=== PATIENT | male | born 1980 | race African-American/Black ===

== ENCOUNTER 2017-02-04 07:53 | Emergency (ER) | payer OTHER, BC ==
[2017-02-04 08:21] VITALS: BMI 48.4
[2017-02-04 08:27] VITALS: BP 147/75
[2017-02-04 08:32] LABS: BASOPHILS # (AUTO) 0.1 X10^3/uL (0.0-0.1); BASOPHILS % (AUTO) 1.2 % (0.2-1.0); EOSINOPHILS # (AUTO) 0.1 x10^3/uL (0.0-0.2); EOSINOPHILS % (AUTO) 1.1 % (0.9-2.9); LYMPHOCYTES # (AUTO) 1.5 X10^3/uL (1.3-2.9); LYMPHOCYTES % (AUTO) 14.2 % (21.0-51.0); MEAN CORPUSCULAR HEMOGLOBIN 23.2 pg (27.0-34.0); MEAN CORPUSCULAR VOLUME 72.7 fL (80.0-100.0); MEAN PLATELET VOLUME 8.7 fL (7.4-11.0); MONOCYTES # (AUTO) 0.7 x10^3/uL (0.3-0.8); MONOCYTES % (AUTO) 6.8 % (0.0-13.0); NEUTROPHILS # (AUTO) 7.9 x10^3/uL (2.2-4.8); NEUTROPHILS % (AUTO) 76.7 % (42.0-75.0); PLATELET COUNT 244 X10^3/uL (150.0-450.0); RED BLOOD COUNT 6.47 X10^6/uL (4.7-6.0); RED CELL DISTRIBUTION WIDTH 20.3 % (11.6-16.5); WHITE BLOOD COUNT 10.3 X10^3/uL (3.6-10.0)
--- NOTE | 2017-02-04 08:37 | RAD ---
HISTORY: Chest pain Study: Chest one view Comparison: None Findings: The trachea is midline. The cardiac silhouette is enlarged. No congestive heart failure is noted.. The lungs are clear without focal infiltrate or effusion. The bony thorax is unremarkable. IMPRESSION: 1. Cardiomegaly without congestive heart failure 2. Lungs clear Reported By:
[2017-02-04 08:41] LABS: ANISOCYTOSIS 1+; HYPOCHROMASIA 1+; PLATELET MORPHOLOGY COMMENT NORMAL (NORMAL)
[2017-02-04 08:50] LABS: B-TYPE NATRIURETIC PEPTIDE 233 pg/mL (0-79)
--- NOTE | 2017-02-04 09:08 | CT ---
CT HEAD WITHOUT CONTRAST CLINICAL HISTORY: 36-year-old male with altered mental status. COMPARISON: None. TECHNIQUE: Multiple axial CT images were obtained from the skull base to the cranial vertex without the administration of contrast. FINDINGS: No evidence of abnormal intra- or extra axial fluid collections, midline shift, or mass ef fect. Kunz white differentiation is maintained. Age advanced cortical volume loss is present, with c ommensurate sulcal and ventricular prominence. The basal cisterns are normal in appearance. Significant polypoid mucosal thickening within the maxillary sinuses, left greater than right. Hyper pneumatization of the temporal bones. Remaining imaged paranasal sinuses are clear. Partially image d mastoid air cells are clear. Tympanic cavities are clear. IMPRESSION: 1. No acute intracranial process. 2. Mucosal thickening of the maxillary sinuses as described. Correlate for sinusitis. Reported By:
[2017-02-04 09:11] LABS: ALANINE AMINOTRANSFERASE 30 Units/L (12-78); ALBUMIN 3.4 g/dL (3.4-5.0); ALKALINE PHOSPHATASE 193 Units/L (46-116); ASPARTATE AMINO TRANSFERASE 23 Units/L (15-37); BLOOD UREA NITROGEN 58 mg/dL (7-18); CALCIUM 7.5 mg/dL (8.5-10.1); CARBON DIOXIDE 29.4 mmol/L (21-32); CHLORIDE 94 mmol/L (98-107); CREATINE KINASE 558 Units/L (39-308); CREATININE 19.57 mg/dL (0.70-1.30); GLUCOSE 52 mg/dL (65-99); SODIUM 136 mmol/L (136-145); TOTAL PROTEIN 8.3 g/dL (6.4-8.2); TROPONIN I 0.04 ng/mL (0-1.5); eGFR BLACK RACES 3 (>60); eGFR NON BLACK RACES 3 (>60)
--- NOTE | 2017-02-04 09:17 | DR.AMS ---
HPI - Time Seen Time seen: 08:10 - HPI Comment HPI Comment: HISTORY BELOW. - Complaint Cheif Complaint Doctors Comments: FOUND UNRESPONSIVE AT HOME. EMS ARRIVE TO CONFUSE PATIENT WITH SLIGHTLY LOW GLUCOSE. GLUCOSE LOW IN ED. STILL CONFUSE BUT MUCH MORE ALERT. NO FEVER. DIABETIC PATIENT WITH ESRD ON HEMODIALYSIS DUE TODAY. - Reviewed Nurses Notes Reviewed: Yes - Source History Provided: Patient, EMS - Mode of Arrival Mode of Arrival: EMS - Timing Came On: Suddenly Symptoms: Improving Symptom Onset: Unknown - Duration Duration: Constant Duration: Minutes - Quality Quality: Decreased Alertness, Change in Behavior, Confusion - Severity Severity: Moderate - Context Recent: denies: Fever History Of: Hypoglycemia, Diabetes, On Insulin - Associated Signs and Symptoms Associated Signs and Symptoms: Generalized Weakness, Headache, Change in Behavior, Confusion, Unresponsiveness PMH - PMH Past Medical History: Dialysis, Hyperthyroidism, Hypertension, Dyslipidemia, Diabetes, Renal Disease Past Surgical History: Yes Surgical History: Ortho Surgery - Family History Family Medical History: Diabetes Mellitus, Hypertension - Social History Do you use any recreational Drugs:: No ROS - Review of Systems Constitutional: Weakness, Fatigue. negative: Chills, Fever Eyes: negative: Eye Pain, Discharge ENTM: negative: Ear Pain, Nose Discharge, Nose Congestion Respiratoy: Non-Productive Cough, Short of Breath, Wheezing. negative: Hemoptysis Cardiovascular: Edema. negative: Chest Pain Gastrointestinal/Abdominal: negative: Abdominal Pain, Diarrhea, Nausea, Vomiting Genitourinary: negative: Dysuria, Hematuria Neurological: Headache, Weakness, Dizziness Musculoskeletal: Muscle Pain Integumentary: Change in Color Hematologic/Lymphatic: Easy Bleeding, Easy Bruising Endocrine: negative: Excessive Sweating, Flushing, Decreased Appetite All Other Systems: Reviewed and Negative PE - Vitals Vital Signs: Temp Pulse Pulse Resp BP BP Pulse Ox 02/04/17 08:27 68 18 147/75 95 02/04/17 07:59 95.6 F L 68 18 158/98 97 03/16/16 17:19 163/69 01/25/13 11:38 175/96 - General Limitations: No Limitations General Appearance: Alert - Head Head Exam: Normal Inspection Head Exam Physical: Other (NONE) - Eyes Eye exam: PERRL, EOMI. negative: Scleral Icterus, Conjunctival Injection Pupils: Regular, Round: Bilateral - ENT ENT Exam: Normal Exam, Normal Oropharynx, Normal External Ear Exam, TM's Normal Bilaterally External Ear Exam: Normal External Inspection TM/Canal Exam: Bilateral Normal Nose Exam: Normal Nose Exam Mouth Exam: Normal Inspection Throat Exam: Normal Inspection - Neck Neck Exam: Trachea Midline. negative: Tenderness, Meningismus, Lymphadenopathy - Chest Chest Inspection: Symmetric Chest Wall Rise - Respiratory Respiratory Exam: Normal Lung Sounds Bilat Respiratory Exam: Bilateral Rhonchi, Lower Rhonchi - Cardiovascular Cardiovascular Exam: Regular Rate, Normal Rhythm, Normal Heart Sounds - Abdominal Exam Abdominal Exam: Normal Bowel Sounds, Soft. negative: Tenderness - Extremities Extremities Exam: Edema - Back Back Exam: Paraspinal Tenderness - Neurological Neurological Exam: Alert, Oriented X3 Speech: Fluid Speech Cranial Nerve Exam: EOM Function (II, III, IV, ): Normal, Facial Sensation (V) : Normal, Facial Palsy (VII): Normal, Gag reflex (XI): Normal, Tongue Deviation : Normal Motor Strength - LUE: 5/5 Motor Strength - RUE: 5/5 Motor Strength - LLE: 5/5 Motor Strength - RLE: 5/5 Upper Motor Neuron Exam: Babinski Sign: Normal DTR: Patellar (L): 4+, patellar (R): 4+ - Psychological Psychiatric Exam: Normal Affect, Normal Mood - Skin Skin Exam: Erythema MDM - Additional Information Obtained Additional Information Obtained From: Family - Differential Diagnosis Metabolic: Dehydration, Hypercalcemia, Hypernatremia, Hypoglycemia, Hyponatremia , Hypoxemia Structural: Closed Head Injury, CVA Infectious: Sepsis, UTI Course - Treatment Treatment: PATIENT GIVEN REGULAR DIET IN ED. D50 AND INSULIN GIVEN WITH PO KAYEXALATE. POTASSIUM. PATIENT DISCHARGE TO GO FOR DIALYSIS. - Education/Counseling Education/Counseling: Patient, Family, Education Educated On: Treatment, Diagnosis, Needs for Follow Up ROR - Labs Reviewed Laboratory Results Reviewed?: Yes Result Diagrams: 02/04/17 08:12 02/04/17 11:33 Laboratory: WBC 10.3 X10^3/uL (3.6-10.0) H 02/04/17 08:12 RBC 6.47 X10^6/uL (4.7-6.0) H 02/04/17 08:12 Hgb 15.0 g/dL (13.5-18.0) 02/04/17 08:12 Hct 47.0 % (42.0-54.0) 02/04/17 08:12 MCV 72.7 fL (80.0-100.0) L 02/04/17 08:12 MCH 23.2 pg (27.0-34.0) L 02/04/17 08:12 MCHC 32.0 g/dL (33.0-35.0) L 02/04/17 08:12 RDW 20.3 % (11.6-16.5) H 02/04/17 08:12 Plt Count 244 X10^3/uL (150.0-450.0) 02/04/17 08:12 Plt Count Comment Adequate (ADEQUATE) 02/04/17 08:12 MPV 8.7 fL (7.4-11.0) 02/04/17 08:12 Neut % 76.7 % (42.0-75.0) H 02/04/17 08:12 Lymph % 14.2 % (21.0-51.0) L 02/04/17 08:12 [place] % 6.8 % (0.0-13.0) 02/04/17 08:12 Eos % 1.1 % (0.9-2.9) 02/04/17 08:12 Baso % 1.2 % (0.2-1.0) H 02/04/17 08:12 Neut # 7.9 x10^3/uL (2.2-4.8) H 02/04/17 08:12 Lymph # 1.5 X10^3/uL (1.3-2.9) 02/04/17 08:12 [place] # 0.7 x10^3/uL (0.3-0.8) 02/04/17 08:12 Eos # 0.1 x10^3/uL (0.0-0.2) 02/04/17 08:12 Baso # 0.1 X10^3/uL (0.0-0.1) 02/04/17 08:12 Absolute Nucleated RBC 0.1 /100WBC 02/04/17 08:12 Plt Morphology Comment Normal (NORMAL) 02/04/17 08:12 RBC Morphology Abnormal (NORMAL) 02/04/17 08:12 Hypochromasia 1+ A 02/04/17 08:12 Anisocytosis 1+ A 02/04/17 08:12 Sodium 136 mmol/L (136-145) 02/04/17 08:12 Corrected Sodium TNP 02/04/17 08:12 Potassium 5.5 mmol/L (3.5-5.1) H 02/04/17 11:33 Chloride 94 mmol/L (98-107) L 02/04/17 08:12 Carbon Dioxide 29.4 mmol/L (21-32) 02/04/17 08:12 BUN 58 mg/dL (7-18) H 02/04/17 08:12 Creatinine 19.57 mg/dL (0.70-1.30) H 02/04/17 08:12 Est GFR (MDRD) Af Amer 3 (>60) L 02/04/17 08:12 Est GFR (MDRD) Non-Af 3 (>60) L 02/04/17 08:12 Glucose 52 mg/dL (65-99) L 02/04/17 08:12 Calcium 7.5 mg/dL (8.5-10.1) L 02/04/17 08:12 Corrected Calcium TNP 02/04/17 08:12 Total Bilirubin 0.70 mg/dL (0.2-1.0) 02/04/17 08:12 AST 23 Units/L (15-37) 02/04/17 08:12 ALT 30 Units/L (12-78) 02/04/17 08:12 Alkaline Phosphatase 193 Units/L (46-116) H 02/04/17 08:12 Creatine Kinase 558 Units/L (39-308) H 02/04/17 08:12 CK-MB (CK-2) 5.4 ng/mL (0-4.0) H* 02/04/17 08:12 CK/CKMB % Calc 1.0 % (<4) 02/04/17 08:12 Troponin I 0.04 ng/mL (0-1.5) 02/04/17 08:12 B-Natriuretic Peptide 233 pg/mL (0-79) H 02/04/17 08:12 Total Protein 8.3 g/dL (6.4-8.2) H 02/04/17 08:12 Albumin 3.4 g/dL (3.4-5.0) 02/04/17 08:12 Globulin 4.9 g/dL (2.5-4.5) H 02/04/17 08:12 Albumin/Globulin Ratio 0.7 Ratio (1.1-2.1) L 02/04/17 08:12 - XRAY XRAY Interpreted by: Radiologist XRAY Findings: REPORT DISCUSS WITH PATIENT. - EKG Rhythm: NSR (EKG NOTED.) - Diagnosis Discharge Problem: Hyperkalemia, Hypoglycemia Mental status alteration Qualifiers: Altered mental status type: transient alteration of awareness Qualified Code(s) : R40.4 - Transient alteration of awareness - Discharge Plan Disposition: 01 HOME, SELF-CARE Condition: Stable - Follow ups/Referrals Follow ups/Referrals: EMILIA BRADLEY [Primary Care Provider] - 1 day - Instructions Instructions: Hypoglycemia, Hyperkalemia Additional Instructions: DIALYSIS TODAY SCHEDULE. RETURN TO ED IF WORSE.
[2017-02-04 09:22] LABS: CREATINE KINASE MB 5.4 ng/mL (0-4.0)
[2017-02-04] MEDS ORDERED: HumuLIN R IV ONE (09:58)
[2017-02-04] MEDS ORDERED: D50W ABBOJECT SYR IV ONE (09:58)
[2017-02-04] MEDS ORDERED: KAYEXALATE PO ONE (09:59)
[2017-02-04] MEDS ORDERED: HumuLIN R ONE (10:14)
[2017-02-04] MEDS ORDERED: D50W ABBOJECT SYR ONE (10:14)
[2017-02-04] MEDS ORDERED: SNACK - Diabetic Appropriate PO SCH (20:00)
== END 2017-02-04 12:39 | disposition home or self-care (01) ==
LOC: ER 08:02
DX: R40.4 Transient alteration of awareness (principal); E11.65 Type 2 diabetes mellitus with hyperglycemia; E87.5 Hyperkalemia; R51 Headache; N18.6 End stage renal disease; Z99.2 Dependence on renal dialysis; R94.31 Abnormal electrocardiogram [ECG] [EKG]
CPT/HCPCS: 36415; 70450; 71010; 80053; 82550; 82553; 83880; 84132; 84484; 85025; 87040; 93005; 93010; 96365; 96374; 96375; 99283; A4222; J1815; J3490

== ENCOUNTER 2017-04-23 06:21 | Emergency (ER) | payer OTHER, BC ==
[2017-04-23 06:32] VITALS: BP 136/79; BMI 43.9
--- NOTE | 2017-04-23 06:48 | DR.HYPOGLY ---
HPI - Time Seen Time seen: 06:40 - PCP Primary Care Physician: MIRNA - Complaint Chief Complaint Doctors Comments: Patient states that his blood glucose was low. He drank a soda and ate a candy bar. When EMS arrived his glucose for 53mg /dl Chief Complaint:: SEIZURE ACTIVITY Self Treatment fo Chief Complaint: DRANK SODA AND ATE A CANDY BAR - Source History Provided: Patient - Mode of Arrival Mode of Arrival: EMS - Timing Onset of Chief Complaint: 04/23/17 PMH - PMH Past Medical History: Yes Past Medical History: Dialysis, Hyperthyroidism, Hypertension, Dyslipidemia, Diabetes, Renal Disease Past Surgical History: Yes Surgical History: Ortho Surgery Past Surgical History Comment: SHUNT LEFT ARM - Family History History of Family Medical Conditions: Yes Family Medical History: Diabetes Mellitus, Hypertension - Social History Does patient currently use any type of tobacco product: No Have you used tobacco products in the last 12 months: No Type of Tobacco Use: Cigars Does any household member use tobacco: No Alcohol Use: None Do you use any recreational Drugs:: No Lives With: Family Lives Where: Home - infectious screening In the last 2 months have you had wt loss of >10#?: NO Have you had fever, night sweats or hemotysis?: No Have you traveled outside the country in the last 6 months?: No Isolation: Standard ROS - Review of Systems Eyes: No Symptoms Reported ENTM: No Symptoms Reported Respiratoy: No Symptoms Reported Cardiovascular: No Symptoms Reported Gastrointestinal/Abdominal: No Symptoms Reported Genitourinary: No Symptoms Reported Neurological: No Symptoms Reported Musculoskeletal: No Symptoms Reported Integumentary: No Symptoms Reported Hematologic/Lymphatic: No Symptoms Reported Endocrine: No Symptoms Reported Psychiatric: No Symptoms Reported All Other Systems: Reviewed and Negative PE - Vital Signs Vitals: Temperature 97.8 F Pulse Rate 72 Respiratory Rate 16 Blood Pressure [Right Arm] 147/75 Blood Pressure 136/79 O2 Sat by Pulse Oximetry 97 - General Limitations: No Limitations General Appearance: Alert, In No Apparent Distress - Eyes Eye exam: Normal Appearance, PERRL, EOMI Pupils: Regular, Round: Bilateral Sclera/Conjunctival: Normal Inspection: Bilateral - ENT ENT Exam: Normal Exam, Normal Oropharynx Nose Exam: Normal Nose Exam Mouth Exam: Normal Inspection Throat Exam: Normal Inspection - Neck Neck Exam: Normal Inspection - Chest Chest Inspection: Normal Inspection, Symmetric Chest Wall Rise - Respiratory Respiratory Exam: Normal Lung Sounds Bilat Respiratory Exam: Bilateral Clear to Auscultation - Cardiovascular Cardiovascular Exam: Regular Rate, Normal Rhythm - Abdominal Exam Abdominal Exam: Normal Inspection Abdominal Tenderness: negative: RUQ, RLQ, LUQ, LLQ, Epigastrium, Suprapubic, Diffuse, Mild, Moderate, Severe, Other - Extremities Extremities Exam: Other (shunt per left arm) - Back Back Exam: Normal Inspection - Neurologic Neurological Exam: Alert, Oriented X3, CN II-XII Intact Cranial Nerve Exam: EOM Function (II, III, IV, ): Normal Cerebellar Function: Finger to Nose: Normal Motor Strength - LUE: 3/5 Motor Strength - RUE: 3/5 Motor Strength - LLE: 3/5 Motor Strength - RLE: 3/5 Upper Motor Neuron Exam: Valente Neglect: Normal Sensory Exam Upper Extremity: Light Touch: Normal Sensory Exam Lower Extremity: Light Touch: Normal - Psychiatric Psychiatric Exam: Normal Affect, Normal Mood - Skin Skin Exam: Warm, Dry, Intact Course - Reevaluation 1st: Improved ROR - Labs Reviewed Result Diagrams: 04/23/17 06:52 04/23/17 06:52 Laboratory: WBC 6.5 X10^3/uL (3.6-10.0) 04/23/17 06:52 RBC 6.12 X10^6/uL (4.7-6.0) H 04/23/17 06:52 Hgb 14.4 g/dL (13.5-18.0) 04/23/17 06:52 Hct 45.3 % (42.0-54.0) 04/23/17 06:52 MCV 74.0 fL (80.0-100.0) L 04/23/17 06:52 MCH 23.6 pg (27.0-34.0) L 04/23/17 06:52 MCHC 31.8 g/dL (33.0-35.0) L 04/23/17 06:52 RDW 22.5 % (11.6-16.5) H 04/23/17 06:52 Plt Count 177 X10^3/uL (150.0-450.0) 04/23/17 06:52 MPV 9.9 fL (7.4-11.0) 04/23/17 06:52 Neut % 63.7 % (42.0-75.0) 04/23/17 06:52 Lymph % 25.4 % (21.0-51.0) 04/23/17 06:52 [place] % 5.2 % (0.0-13.0) 04/23/17 06:52 Eos % 4.7 % (0.9-2.9) H 04/23/17 06:52 Baso % 1.0 % (0.2-1.0) 04/23/17 06:52 Neut # 4.1 x10^3/uL (2.2-4.8) 04/23/17 06:52 Lymph # 1.7 X10^3/uL (1.3-2.9) 04/23/17 06:52 [place] # 0.3 x10^3/uL (0.3-0.8) 04/23/17 06:52 Eos # 0.3 x10^3/uL (0.0-0.2) H 04/23/17 06:52 Baso # 0.1 X10^3/uL (0.0-0.1) 04/23/17 06:52 Absolute Nucleated RBC 0.0 /100WBC 04/23/17 06:52 Sodium 136 mmol/L (136-145) 04/23/17 06:52 Corrected Sodium 136 mmol/L (136-145) 04/23/17 06:52 Potassium 4.3 mmol/L (3.5-5.1) 04/23/17 06:52 Chloride 96 mmol/L (98-107) L 04/23/17 06:52 Carbon Dioxide 29.6 mmol/L (21-32) 04/23/17 06:52 BUN 42 mg/dL (7-18) H 04/23/17 06:52 Creatinine 17.50 mg/dL (0.70-1.30) H 04/23/17 06:52 Est GFR (MDRD) Af Amer 4 (>60) L 04/23/17 06:52 Est GFR (MDRD) Non-Af 3 (>60) L 04/23/17 06:52 Glucose 112 mg/dL (65-99) H 04/23/17 06:52 POC Glucose (mg/dL) 91 mg/dL (65-99) 04/23/17 06:30 Hemoglobin A1c 6.1 % (4.5-6.2) 04/23/17 06:52 Calcium 7.9 mg/dL (8.5-10.1) L 04/23/17 06:52 - Diagnosis Discharge Problem: Hypoglycemia - Discharge Plan Condition: Stable - Follow ups/Referrals Follow ups/Referrals: ALEXIS MONTES [Primary Care Provider] - 3 days - Instructions
[2017-04-23 07:06] LABS: CALCIUM 7.9 mg/dL (8.5-10.1); CARBON DIOXIDE 29.6 mmol/L (21-32); CREATININE 17.5 mg/dL (0.70-1.30)
[2017-04-23 07:11] LABS: HEMOGLOBIN A1C 6.1 % (4.5-6.2)
[2017-04-23 07:13] LABS: BASOPHILS # (AUTO) 0.1 X10^3/uL (0.0-0.1); EOSINOPHILS # (AUTO) 0.3 x10^3/uL (0.0-0.2); EOSINOPHILS % (AUTO) 4.7 % (0.9-2.9); HEMATOCRIT 45.3 % (42.0-54.0); HEMOGLOBIN 14.4 g/dL (13.5-18.0); LYMPHOCYTES # (AUTO) 1.7 X10^3/uL (1.3-2.9); LYMPHOCYTES % (AUTO) 25.4 % (21.0-51.0); MEAN CORPUSCULAR HEMOGLOBIN 23.6 pg (27.0-34.0); MEAN CORPUSCULAR HGB CONC 31.8 g/dL (33.0-35.0); MEAN PLATELET VOLUME 9.9 fL (7.4-11.0); MONOCYTES # (AUTO) 0.3 x10^3/uL (0.3-0.8); MONOCYTES % (AUTO) 5.2 % (0.0-13.0); NEUTROPHILS # (AUTO) 4.1 x10^3/uL (2.2-4.8); NEUTROPHILS % (AUTO) 63.7 % (42.0-75.0); PLATELET COUNT 177 X10^3/uL (150.0-450.0); RED BLOOD COUNT 6.12 X10^6/uL (4.7-6.0); RED CELL DISTRIBUTION WIDTH 22.5 % (11.6-16.5); WHITE BLOOD COUNT 6.5 X10^3/uL (3.6-10.0)
[2017-04-23 07:29] LABS: ANISOCYTOSIS 1+; HYPOCHROMASIA 1+; PLATELET MORPHOLOGY COMMENT NORMAL (NORMAL)
== END 2017-04-23 07:30 | disposition home or self-care (01) ==
LOC: ER 06:21
DX: E16.2 Hypoglycemia, unspecified (principal)
CPT/HCPCS: 36415; 80048; 83036; 85025; 99282

== ENCOUNTER 2017-06-26 03:43 | Emergency (ER) | payer OTHER, BC ==
[2017-06-26] MEDS ORDERED: ZOFRAN INJ 4 MG VIAL ONE (03:54)
[2017-06-26] MEDS ORDERED: ZOFRAN INJ 4 MG VIAL IVP ONE (03:55)
[2017-06-26 04:00] VITALS: BMI 44.7
--- NOTE | 2017-06-26 04:05 | DR.GENAD ---
HPI - PCP Primary Care Physician: darshan - Complaint/Symptoms Chief Complaint Doctors Comments: Patient states that he took his usual dose of insulin on last night, he stated that he thinks his blood sugar dropped. He also reports that he started to have chills and congestion earlier today. Chief Complaint:: EMS responded to a low blood sugar. EMS reports blood sugar was in the 60's on arrival to scene. Patient was semi-consious on arrival. EMS states they administered oral glucose and it improved to 72. On arrival to hospital patient is alert and oriented x 3, drowsy. Patient is on dialysis, which is due today. - Source History Provided: EMS - Mode of Arrival Mode of Arrival: Stretcher - Timing Onset of Chief Complaint: 06/26/17 PMH - PMH Past Medical History: Yes Past Medical History: Dialysis, Hyperthyroidism, Hypertension, Dyslipidemia, Diabetes, Renal Disease Past Surgical History: Yes Surgical History: Ortho Surgery Past Surgical History Comment: av shunt - Family History History of Family Medical Conditions: Yes Family Medical History: Diabetes Mellitus, Hypertension - Social History Does patient currently use any type of tobacco product: No Have you used tobacco products in the last 12 months: No Type of Tobacco Use: None Alcohol Use: None Do you use any recreational Drugs:: No Lives With: Family Lives Where: Home - infectious screening In the last 2 months have you had wt loss of >10#?: NO Have you had fever, night sweats or hemotysis?: No Have you traveled outside the country in the last 6 months?: No Isolation: Standard ROS - Review of Systems Eyes: No Symptoms Reported ENTM: No Symptoms Reported Respiratoy: No Symptoms Reported Cardiovascular: No Symptoms Reported Gastrointestinal/Abdominal: No Symptoms Reported Genitourinary: No Symptoms Reported Neurological: No Symptoms Reported Musculoskeletal: No Symptoms Reported Integumentary: No Symptoms Reported Hematologic/Lymphatic: No Symptoms Reported Endocrine: No Symptoms Reported Psychiatric: No Symptoms Reported All Other Systems: Reviewed and Negative PE - Vital Signs Vitals: Temperature 98.2 F Pulse Rate [Right Brachial] 75 Respiratory Rate 24 Blood Pressure [Right Arm] 155/99 Blood Pressure 136/84 O2 Sat by Pulse Oximetry 78 - General General Appearance: Alert, In No Apparent Distress - Head Head Exam: Normal Inspection, Atraumatic - Eyes Eye exam: Normal Appearance, PERRL, EOMI - ENT ENT Exam: Normal Exam External Ear Exam: Normal External Inspection TM/Canal Exam: Bilateral Normal Nose Exam: Normal Nose Exam Mouth Exam: Normal Inspection Throat Exam: Normal Inspection - Neck Neck Exam: Normal Inspection, Full ROM - Chest Chest Inspection: Normal Inspection - Respiratory Respiratory Exam: Normal Lung Sounds Bilat Respiratory Exam: Bilateral Clear to Auscultation - Cardiovascular Cardiovascular Exam: Regular Rate, Normal Rhythm - Abdominal Exam Abdominal Exam: Normal Inspection - Extremities Extremities Exam: Normal Inspection, Full ROM - Back Back Exam: Normal Inspection, Full ROM - Neurologic Neurological Exam: Alert, Oriented X3, CN II-XII Intact - Psychiatric Psychiatric Exam: Normal Affect - Skin Skin Exam: Warm, Dry Course - Consultation Called: 23:00 (DrTaher accpeted patient for transfer ) - Education/Counseling Educated On: Treatment, Prognosis ROR - Labs Reviewed Result Diagrams: 06/26/17 04:15 06/26/17 04:15 Laboratory: WBC 10.0 X10^3/uL (3.6-10.0) 06/26/17 04:15 RBC 5.41 X10^6/uL (4.7-6.0) 06/26/17 04:15 Hgb 12.0 g/dL (13.5-18.0) L 06/26/17 04:15 Hct 38.2 % (42.0-54.0) L 06/26/17 04:15 MCV 70.7 fL (80.0-100.0) L 06/26/17 04:15 MCH 22.2 pg (27.0-34.0) L 06/26/17 04:15 MCHC 31.4 g/dL (33.0-35.0) L 06/26/17 04:15 RDW 19.8 % (11.6-16.5) H 06/26/17 04:15 Plt Count 130 X10^3/uL (150.0-450.0) L 06/26/17 04:15 Plt Count Comment Decreased (ADEQUATE) 06/26/17 04:15 MPV 8.6 fL (7.4-11.0) 06/26/17 04:15 Neut % 74.9 % (42.0-75.0) 06/26/17 04:15 Lymph % 8.6 % (21.0-51.0) L 06/26/17 04:15 [place] % 11.4 % (0.0-13.0) 06/26/17 04:15 Eos % 3.1 % (0.9-2.9) H 06/26/17 04:15 Baso % 2.0 % (0.2-1.0) H 06/26/17 04:15 Neut # 7.5 x10^3/uL (2.2-4.8) H 06/26/17 04:15 Lymph # 0.9 X10^3/uL (1.3-2.9) L 06/26/17 04:15 [place] # 1.1 x10^3/uL (0.3-0.8) H 06/26/17 04:15 Eos # 0.3 x10^3/uL (0.0-0.2) H 06/26/17 04:15 Baso # 0.2 X10^3/uL (0.0-0.1) H 06/26/17 04:15 Absolute Nucleated RBC 0.0 /100WBC 06/26/17 04:15 Plt Morphology Comment Normal (NORMAL) 06/26/17 04:15 RBC Morphology Abnormal (NORMAL) 06/26/17 04:15 Hypochromasia 1+ A 06/26/17 04:15 Anisocytosis 1+ A 06/26/17 04:15 Microcytosis 1+ A 06/26/17 04:15 Sample Site Rrad 06/26/17 06:31 ABG pH 7.430 (7.35-7.45) 06/26/17 06:31 ABG pCO2 47.0 mmHg (35.0-45.0) H 06/26/17 06:31 ABG pO2 47.0 mmHg (80.0-100.0) L* 06/26/17 06:31 ABG HCO3 31.2 mmol/L (22-26) H* 06/26/17 06:31 ABG O2 Saturation 84.0 % (90-100) L* 06/26/17 06:31 ABG Base Excess 5.9 mmol/L (-2.0-2.0) H 06/26/17 06:31 Gian Test Pos 06/26/17 06:31 A-a Gradient 44.0 mmHg 06/26/17 06:31 FiO2 21.000 06/26/17 06:31 Blood Gas Comments [place] abg well-mtf 06/26/17 06:31 Sodium 139 mmol/L (136-145) 06/26/17 04:15 Corrected Sodium TNP 06/26/17 04:15 Potassium 4.8 mmol/L (3.5-5.1) 06/26/17 04:15 Chloride 99 mmol/L (98-107) 06/26/17 04:15 Carbon Dioxide 30.5 mmol/L (21-32) 06/26/17 04:15 BUN 54 mg/dL (7-18) H 06/26/17 04:15 Creatinine 16.71 mg/dL (0.70-1.30) H 06/26/17 04:15 Est GFR (MDRD) Af Amer 4 (>60) L 06/26/17 04:15 Est GFR (MDRD) Non-Af 3 (>60) L 06/26/17 04:15 Glucose 64 mg/dL (65-99) L 06/26/17 04:15 Calcium 7.7 mg/dL (8.5-10.1) L 06/26/17 04:15 Corrected Calcium 8.3 mg/dL (8.5-10.1) L 06/26/17 04:15 Total Bilirubin 1.20 mg/dL (0.2-1.0) H 06/26/17 04:15 AST 31 Units/L (15-37) 06/26/17 04:15 ALT 33 Units/L (12-78) 06/26/17 04:15 Alkaline Phosphatase 175 Units/L (46-116) H 06/26/17 04:15 Total Protein 7.7 g/dL (6.4-8.2) 06/26/17 04:15 Albumin 3.3 g/dL (3.4-5.0) L 06/26/17 04:15 Globulin 4.4 g/dL (2.5-4.5) 06/26/17 04:15 Albumin/Globulin Ratio 0.8 Ratio (1.1-2.1) L 06/26/17 04:15 Influenza Type A (PCR) Negative (NEGATIVE) 06/26/17 04:49 Influenza Type B (PCR) Negative (NEGATIVE) 06/26/17 04:49 Streptococcus Screen Positive (NEGATIVE) A 06/26/17 04:49 - XRAY XRAY Interpreted by: Radiologist (Chest:Examination is limited by technique and patient body habitus. There is suspected increased interstitial opacities and peribronchial thickening likely representing acute bronchitis and or viral/ atypical pneumonia. A mild intersitial edema is also a consideration in the appropriate clinical setting. No dense airspace consolidation, pleural effusion or pneumothorax. Heart size is normal. Trachea is midline. No acute osseous abormality.) - Diagnosis Discharge Problem: Influenza-like illness, Strep pharyngitis Interstitial edema Qualifiers: Edema type: localized Qualified Code(s): R60.0 - Localized edema Renal failure Qualifiers: Renal failure chronicity: chronic Chronic kidney disease stage: stage 2 (mild) Qualified Code(s): N18.2 - Chronic kidney disease, stage 2 (mild) - Discharge Plan Condition: Stable - Follow ups/Referrals Follow ups/Referrals: NFD,None [Primary Care Provider] - 3 days - Instructions
[2017-06-26] MEDS ORDERED: NS 1000 ML 1,000 ML IV ONE (04:06)
[2017-06-26] MEDS ORDERED: NS 1000 ML 1,000 ML ONE (04:10)
[2017-06-26 04:24] LABS: BASOPHILS # (AUTO) 0.2 X10^3/uL (0.0-0.1); EOSINOPHILS # (AUTO) 0.3 x10^3/uL (0.0-0.2); EOSINOPHILS % (AUTO) 3.1 % (0.9-2.9); HEMATOCRIT 38.2 % (42.0-54.0); LYMPHOCYTES # (AUTO) 0.9 X10^3/uL (1.3-2.9); LYMPHOCYTES % (AUTO) 8.6 % (21.0-51.0); MEAN CORPUSCULAR HEMOGLOBIN 22.2 pg (27.0-34.0); MEAN CORPUSCULAR HGB CONC 31.4 g/dL (33.0-35.0); MEAN CORPUSCULAR VOLUME 70.7 fL (80.0-100.0); MEAN PLATELET VOLUME 8.6 fL (7.4-11.0); MONOCYTES # (AUTO) 1.1 x10^3/uL (0.3-0.8); MONOCYTES % (AUTO) 11.4 % (0.0-13.0); NEUTROPHILS # (AUTO) 7.5 x10^3/uL (2.2-4.8); NEUTROPHILS % (AUTO) 74.9 % (42.0-75.0); PLATELET COUNT 130 X10^3/uL (150.0-450.0); RED BLOOD COUNT 5.41 X10^6/uL (4.7-6.0); RED CELL DISTRIBUTION WIDTH 19.8 % (11.6-16.5)
[2017-06-26 04:32] LABS: ABG BASE EXCESS 4.8 mmol/L (-2.0-2.0)
[2017-06-26 04:32] LABS: ALANINE AMINOTRANSFERASE 33 Units/L (12-78); ALBUMIN 3.3 g/dL (3.4-5.0); ALKALINE PHOSPHATASE 175 Units/L (46-116); ASPARTATE AMINO TRANSFERASE 31 Units/L (15-37); BLOOD UREA NITROGEN 54 mg/dL (7-18); CALCIUM 7.7 mg/dL (8.5-10.1); CARBON DIOXIDE 30.5 mmol/L (21-32); CHLORIDE 99 mmol/L (98-107); COR CA(FOR HYPOALB) 8.3 mg/dL (8.5-10.1); CREATININE 16.71 mg/dL (0.70-1.30); SODIUM 139 mmol/L (136-145); TOTAL PROTEIN 7.7 g/dL (6.4-8.2); eGFR BLACK RACES 4 (>60); eGFR NON BLACK RACES 3 (>60)
[2017-06-26 04:33] LABS: ABG ALLEN TEST POS; ABG HCO3 30.4 mmol/L (22-26)
[2017-06-26 04:45] LABS: HYPOCHROMASIA 1+; PLATELET MORPHOLOGY COMMENT NORMAL (NORMAL)
[2017-06-26 04:46] LABS: ANISOCYTOSIS 1+; MICROCYTOSIS 1+
--- NOTE | 2017-06-26 04:48 | RAD ---
AP chest Indication: Cough Comparison: 02/04/2017. Findings: Examination is limited by technique and patient body habitus. There is suspected increased interstitial opacities and peribronchial thickening likely representing acute bronchitis and or viral /atypical pneumonia. A mild interstitial edema is also a consideration in the appropriate clinical se tting. No dense airspace consolidation, pleural effusion or pneumothorax. Heart size is normal. Trach ea is midline. No acute osseous abnormality. Impression: See above. Reported By:
[2017-06-26] MEDS ORDERED: D5 NS 1000 ML 1,000 ML IV ONE (04:52)
[2017-06-26] MEDS ORDERED: D5 NS 1000 ML 1,000 ML IV SCH (05:00)
[2017-06-26] MEDS ORDERED: BICILLIN L-A IM ONE ×2 (05:10→05:17)
[2017-06-26 06:41] LABS: ABG BASE EXCESS 5.9 mmol/L (-2.0-2.0)
[2017-06-26 06:42] LABS: ABG HCO3 31.2 mmol/L (22-26)
[2017-06-26 06:43] LABS: ABG ALLEN TEST POS
[2017-06-26 07:42] VITALS: BP 159/83
== END 2017-06-26 07:42 | disposition short-term general hospital (02) ==
LOC: ER 03:43
DX: R60.0 Localized edema (principal); N18.2 Chronic kidney disease, stage 2 (mild); J11.1 Influenza due to unidentified influenza virus with other respiratory manifestations; J02.0 Streptococcal pharyngitis
CPT/HCPCS: 36415; 36600; 71010; 80053; 82803; 85025; 87502; 87880; 96365; 96367; 96372; 96374; 99284; 99285; A4222; J0570; J2405

== ENCOUNTER 2017-07-30 08:51 | Emergency (ER) | payer OTHER, BC ==
[~2017-07-30 08:51] MED LIST: ADRENALINE CHL INJ IVP ONE; NS 1000 ML 1,000 ML IV ONE; SODIUM BICARBONATE 8.4% INJ ADULT IVP ONE
[2017-07-30] MEDS ORDERED: SODIUM BICARBONATE 8.4% INJ ADULT IVP ONE ×2 (08:52→09:36)
[2017-07-30] MEDS ORDERED: ADRENALINE CHL INJ IVP ONE ×7 (08:57→09:30)
[2017-07-30] MEDS ORDERED: DEXTROSE 25% IV ONE ×2 (09:00→09:20)
[2017-07-30] MEDS ORDERED: D50W ABBOJECT SYR IV ONE (09:10)
[2017-07-30 09:21] VITALS: BP 0/0; BMI 47.5
--- NOTE | 2017-07-30 09:50 | DR.GENAD ---
HPI - PCP Primary Care Physician: UNK - HPI Comment HPI Comment: PATIENT IN ED VIA EMS FULL CODE. FOUND AT HIS HOME NOT BREATHING, COLD AND CYANOTIC. ACLS PROTOCOL RESUSCITATION STARTED AND BROUGHT TO ED. HE WAS IN [place] WHEN FOUND AND HERE IN ED WELL.HE IS INTUBATED BY ANESTHESIA IN ED. SEE CODE NOTE FOR DETAIL. - Complaint/Symptoms Chief Complaint Doctors Comments: CARDIOPULMONARY ARREST. Chief Complaint:: PT WAS FOUND UNRESPONSIVE NOT BREATHING BY FAMILY MEMBER. TH LAST TIME PT WAS SPOKEN TO WAS LAST NIGHT. EMS BRINGS PT IN WITH FULL CODE IN PROGRESS. - Nurses notes reviewed Nurses Notes Review: Yes - Source History Provided: EMS - Mode of Arrival Mode of Arrival: EMS - Timing Onset of Chief Complaint: 07/30/17 Came on: Suddenly - Duration Duration: Constant Duration: Hours - Severity Severity: Extreme PMH - PMH Past Medical History: Yes (RECALLED FROM PREVIOUS ) Past Medical History: Dialysis, Hyperthyroidism, Hypertension, Dyslipidemia, Diabetes, Renal Disease Past Surgical History: Yes Surgical History: Ortho Surgery - Family History History of Family Medical Conditions: Yes Family Medical History: Diabetes Mellitus, Hypertension - Social History Do you use any recreational Drugs:: No Lives Where: Home - infectious screening Have you traveled outside the country in the last 6 months?: No Isolation: Standard ROS - Review of Systems Constitutional: Other (UNRESPONSIVE) Eyes: Other (PUPILS FIX) ENTM: negative: Epistaxis Respiratoy: Other (INTUCATED IN ED WITH SIZE 8 ET TUBE BY ANESTHESIA.). negative: Short of Breath (RESPIRATORY ARREST.) Cardiovascular: Cyanosis (PERIPHERAL CYANOSIS), Other (ASYSTOLINE ON MONITOR.). negative: Syncope (CARDIAC ARREST) Gastrointestinal/Abdominal: negative: Vomiting Genitourinary: Other (UNRESPONSIVE.) Neurological: Other (UNRESPONSIVE.) Musculoskeletal: Other (UNRESPONSIVE) Integumentary: negative: Rash Hematologic/Lymphatic: Other (CARDIAC ARREST) Unable to Obtain Due To: Intubated PE - Vital Signs Vitals: Temperature 93.0 F Pulse Rate 0 Respiratory Rate 0 Blood Pressure [Right Arm] 159/83 Blood Pressure 0/0 O2 Sat by Pulse Oximetry 0 - General Limitations: Other (CARDIOPULMONARY ARREST.) General Appearance: Other (CARDIAC ARREST.) - Head Head Exam: negative: Atraumatic - Eyes Eye exam: Other (PUPUL FIX ). negative: Scleral Icterus, Conjunctival Injection - ENT ENT Exam: Normal Oropharynx External Ear Exam: Normal External Inspection Nose Exam: negative: Normal Nose Exam (NO EPISTAXIS) Mouth Exam: negative: Trismus Throat Exam: negative: Tonsillar Erythema - Neck Neck Exam: Trachea Midline - Chest Chest Inspection: Symmetric Chest Wall Rise - Respiratory Respiratory Exam: Other (INTUBATED.) - Cardiovascular Cardiovascular Exam: Other (NO PULSE OR HR) - Abdominal Exam Abdominal Exam: Normal Bowel Sounds, Soft - Extremities Extremities Exam: Edema - Neurologic Neurological Exam: Other (UNRESPONSIVE/CARDIAC ARREST.) - Skin Skin Exam: Cyanosis (PERIPHERA. SKIN COLD) MDM - Additional Information Additional Information Obtained From: Family (DAUGHTER, MOTHER EX AND OTHER FAMILY MEMBERS IN ED.) - Differential Diagnosis Differential Diagnosis: CARDIOPULMONARY ARREST. Course - Treatment Treatment: SEE CODE NOTE AND ORDERS. ROR - Labs Reviewed Laboratory: POC Glucose (mg/dL) 61 mg/dL (65-99) L 07/30/17 09:03 - Diagnosis Discharge Problem: Cardiopulmonary arrest - Discharge Plan Disposition: 20 Condition: Stable - Follow ups/Referrals Follow ups/Referrals: NFD,None [Primary Care Provider] - 3 days - Instructions
== END 2017-07-30 12:10 | disposition expired ==
LOC: ER 08:57
DX: I46.9 Cardiac arrest, cause unspecified (principal)
CPT/HCPCS: 31500; 92950; 93041; 96365; 96374; 96375; 99283; 99285; J0170; J3490